=== PATIENT | male | born 1985 | race Caucasian/White ===

== ENCOUNTER 2019-01-22 15:13 | Emergency (ER) | payer MEDICARE, SELFPAY ==
[2019-01-22 15:14] VITALS: BP 117/78; PULSE 99; RESP 18; TEMP 36.7; O2SAT 96; BMI 35.5
--- NOTE | 2019-01-22 15:33 | ED.VISSUMM ---
- ER Visit Summary Date of Service: 01/22/19 Chief Complaint: Fatigue and weakness History of Present Illness: The patient is a 33 M who presents with fatigue and weakness that began today. Patient states he was at the [facility] urgent care waiting to be seen for his hand when he felt lightheaded and felt like he was going to pass out. Patient states he has only urinated once in the last 15 hours. Patient denies any dysuria or hematuria. Patient is concerned over possible kidney infection. Patient also thinks he may be dehydrated. Patient denies any fevers or chills. Patient denies any nausea or vomiting. Patient does admit to some mild intermittent back pain. Patient denies any headaches. Patient denies any chest pain or shortness of breath. Physical Examination: Vital signs are stable. Patient is afebrile. Patient is in no acute distress. Oral mucosa is pink and moist. Neck is supple. Trachea is midline. There is no JVD noted. Heart was regular rate and rhythm. Lungs are clear and equal bilateral. Abdomen is soft. Bowel sounds are normal. There is no tenderness. There is no guarding noted. Skin is warm dry. Cranial nerves II through XII are intact. There are no focal motor or sensory deficits noted. The remaining physical exam is within normal limits. Test Results: CBC was normal. Basic metabolic profile shows slightly elevated creatinine of 1.36 but the GFR was still normal. Urinalysis was normal. Emergency Department Course and Treatment: Patient was given IV fluids. Patient was feeling better on reevaluation. Patient was instructed to drink plenty of fluids. Patient was instructed to follow-up with his primary care physician in 5 to 7 days. Patient understood and was agreeable with the plan. All questions were answered. Disposition: Discharge home Impression: Mild dehydration This note was generated with [employer] dictation software. It may contain incorrect words, spelling, and punctuation that were not noted in review of the chart prior to signing ED Disposition - Plan for ED Patient: Disposition: Home or Assisted Living Diagnosis: Mild dehydration Instructions: DEHYDRATION (6y-Adult) Referrals: Mark High MD [NON-STAFF] - 5-7 Days
[2019-01-22] MEDS: 0.9% Normal Saline 1,000 ML 1000 ML IV (15:53)
[2019-01-22 16:13] LABS: Absolute Lymphocyte Count 2.29 X10^3/ul (0.83-4.51); Absolute Neutrophil Count 4.7 X10^3/uL (2.0-7.7); Basophil# 0.02 X10^3/uL; Basophil% 0.3 % (0-1); Eosinophil# 0.09 X10^3/uL; Eosinophils% 1.2 % (0-5); Hematocrit 45.1 % (40-54); Hemoglobin 14.8 g/dl (13.0-16.5); Lymphocyte # 2.29 X10^3/ul (4.0); Lymphocyte % 30.1 % (19-41); Mean Corp Hgb Conc 32.8 g/gl (32-36); Mean Corpuscular Hgb 28.5 pg (27.0-32.0); Mean Corpuscular Volume 86.9 fL (80-94); Mean Platelet Vol. 11.2 fl (6.2-12.0); Monocyte# 0.44 X10^3/uL; Monocyte% 5.8 % (0-10); Neutrophil # 4.73 X10^3/uL (2.7-7.7); Neutrophil % 62.2 % (47-70); Platelet Count 155 K/mm3 (150-450); RBC Distribution Width CV 14.2 % (11.6-14.6); RBC Distribution Width SD 45.2 fl (35.1-43.9); Red Blood Count 5.19 M/mm3 (4.6-6.2); White Blood Count 7.6 K/mm3 (4.4-11.0)
[2019-01-22 16:15] LABS: POSITIVE COUNT NO; POSITIVE DIFFERENTIAL NO; POSITIVE MORPHOLOGY NO
[2019-01-22 16:16] LABS: Bacteria 0 SEEN /hpf (None Seen); Mucous, Urine 0 SEEN /hpf (<or=2+); Red Blood Cells-Urine 0 SEEN /hpf (0-5); Squamous Epithelial Cells - UA 0 SEEN /hpf (0-5); White Blood Cells 0 SEEN /hpf (0-5)
[2019-01-22 16:21] LABS: ALB/GLOB Ratio 1.4 RATIO (0.9-2.4); AST(SGOT) 21 U/L (15-37); Alanine Aminotransfer ALT/SGPT 33 U/L (16-61); Albumin, Serum 3.8 g/dL (3.2-5.0); Alkaline Phosphatase 94 U/L (45-117); Anion Gap 3 (5-15); BUN 9 mg/dL (7-18); BUN/Creat Ratio 6.6 RATIO (10-20); Calcium,Total 8.4 mg/dL (8.5-10.1); Chloride 112 mmol/L (98-107); Creatinine, Serum 1.36 mg/dL (0.70-1.30); EST Glomerular Filtration Rate 64 mL/min (>60); Est Glom Filt Rate - Afr Amer 77 mL/min (>60); Estimated Creatinine Clearance 79.77 ml/min; Globulin 2.8 g/dL (2.2-4.2); Glucose 82 mg/dL (74-106); Potassium 3.9 mmol/L (3.5-5.1); Protein, Total 6.6 g/dL (6.4-8.2); Sodium Level 141 mmol/L (136-145)
[2019-01-22 16:38] LABS: Color, Urine Yellow (Yellow); Glucose, Dipstick Normal (Normal); Ketone-Dipstick Negative (Negative); Leukocyte Esterase-Dipstick Negative /ul (Negative); Nitrite-Dipstick Negative (Negative); Occult Blood-Urine Negative /ul (Negative); Protein-Dipstick Negative (Negative); Specific Gravity, Urine 1.005 (1.002-1.030); Urine Bilirubin Dipstick Negative (Negative); Urine Clarity Clear (Clear); Urine Urobilinogen Normal (Normal)
[2019-01-22 17:38] VITALS: BP 122/78; PULSE 89; RESP 16; O2SAT 95
== END 2019-01-22 17:39 | disposition home or self-care (01) ==
PROVIDERS: Emergency Provider Emergency Medicine
DX: E86.0 Dehydration (principal)
CPT/HCPCS: 80053; 81001; 85025; 96360; 96361; 99283; J7030

== ENCOUNTER 2019-04-18 19:47 | Emergency (ER) | payer MEDICARE, SELFPAY ==
[2019-04-18 19:48] VITALS: BP 118/67; PULSE 64; RESP 16; TEMP 36.6; O2SAT 100
[2019-04-18 19:49] VITALS: BP 118/67; PULSE 64; RESP 16; TEMP 36.6; O2SAT 100; BMI 35.0
--- NOTE | 2019-04-18 21:27 | ED.DCSUM_ITS ---
History of Present Illness Chief Complaint: Mental Health Informant: Patient Onset: Today Narrative: Patient is a 33-year-old male with history of bipolar disorder as well as schizophrenia. He is presenting with worsening of auditory hallucinations. Patient states he is hearing what he describes as a loud murmur in his head. He states he feels more overwhelmed than normal. He notes that the headstone for his recently grandfather was put up this week which he thinks is bothering him. Patient denies any homicidal or suicidal ideations. He states he lives home alone. He states he has an appointment to see his psychiatrist [employer] tomorrow. Patient states that he has been in the ER he is starting to feel better. He is in the ER with his frontload driver currently. He denies any other complaints. He states he does feel safe at home. Patient states he does not want to speak to crisis. Patient states that he is on multiple psychiatric medications does not know the name of them. He notes he does take Klonopin at night. Past Medical History - Allergies and Home Meds Allergies/Adverse Reactions: Allergies ziprasidone [From Geodon] Allergy (Verified 01/22/19 15:16) Other STIFFNESS IN BODY Primary Care Physician: Slim Patterson [Primary Care Provider] - Past Medical History: - - Bipolar disorder, schizophrenia Lives: Alone Smoking Status: Never smoker Review of Systems All systems negative except as indicated Psych: Reports: Anxiety, - - Auditory hallucinations. Denies: Suicidal thoughts, Suicidal ideations Physical Exam Vital Signs/Narrative: Vital Signs Temp Pulse Resp BP Pulse Ox 04/18/19 19:49 97.9 F 64 16 118/67 100 04/18/19 19:48 97.9 F 64 16 118/67 100 Inital Vital Signs reviewed: Yes General: Well nourished, Well developed, No Acute Distress Head: Normocephalic, Atraumatic Eyes: Perrl, EOMI ENT: Moist mucous membranes, No rhinorrhea Neck: Supple, Nontender Cardiovascular: Regular rate, Regular rhythm, No murmurs Respiratory: No distress, CTA bilaterally, Chest nontender Abdomen: Soft, Nontender, Nondistended, Normal bowel sounds Back: Nontender, Normal Inspection Extremities: Nontender, No edema Skin: Normal color, No rash Neurological: Alert, Oriented x3, Cranial nerves II-XII grossly intact, Normal Strength, Normal Sensation Psychological: Normal affect, - - Is slightly anxious but behaving appropriately. He seems to have good insight. He denies any homicidal or suicidal ideations. He expresses hope for the future and admits that he was just feeling overwhelmed today. Diagnostic/Tx/Re-eval - Medical Decision Making She is evaluated for worsening auditory hallucinations. He appears nontoxic and in no acute distress. Patient is behaving appropriately. He states he has had these hallucinations for the past 12 years but they just were just worse today. Patient states he is actually feeling improved since he has been in the ER. He states he would like to go home as he does not think he needs crisis evaluation or any inpatient evaluation. Patient is acting appropriately and I feel like this is an acceptable plan. Patient symptoms seem to be near his baseline I do not think a metabolic work-up is indicated. He also has an appointment to see his psychiatrist tomorrow where he can have any medication adjustments made as needed. Patient is given his p.m. dose of clonazepam. An oarrs report shows that he receives 1 mg to take nightly. That is what is ordered for him. Patient does have a ride home. Patient is counseled on signs and symptoms requiring return to the emergency room. Patient verbalizes agreement and understand this plan. Patient discharged home in stable and improved condition. ED Disposition - Plan for ED Patient: Disposition: Home or Assisted Living Diagnosis: Continuous auditory hallucinations Referrals: Slim Patterson [Primary Care Provider] - Additional Instructions: Please make sure you follow-up with your psychiatrist tomorrow. Please return to the emergency room if you feel that you need further help or have worsening symptoms.
[2019-04-18] MEDS: clonazePAM 1 MG Tablet PO (21:33)
[2019-04-18 21:37] VITALS: BP 128/78; PULSE 79; RESP 16; O2SAT 97
== END 2019-04-18 21:39 | disposition home or self-care (01) ==
PROVIDERS: Emergency Provider Emergency Medicine; Family Provider Family Medicine; PCP Family Medicine
DX: F20.9 Schizophrenia, unspecified (principal); F31.9 Bipolar disorder, unspecified
CPT/HCPCS: 99284

== ENCOUNTER 2019-08-07 12:02 | Emergency (ER) | payer MEDICARE, SELFPAY ==
[2019-08-07 12:03] VITALS: BP 111/68; PULSE 84; RESP 16; TEMP 36.8; O2SAT 97; BMI 35.2
--- NOTE | 2019-08-07 13:20 | ED.VIS.GEN ---
History of Present Illness Chief Complaint: Nausea/Vomiting/Diarrhea Detail of Chief Complaint: Onset of diarrhea 4 weeks ago and vomiting past week Informant: Patient, Family Onset: Weeks - Weeks Context: Sudden Onset Timing: Intermittent Quality: Nausea and vomiting and diarrhea Location: Pain periumbilical Maximum Severity: Moderate Worsened by: Nausea, vomiting diarrhea Relieved by: Nothing Associated Symptoms: None Narrative: Patient 34-year-old male with history of bipolar affect disorder schizoaffective sorter presents with abdominal pain that he localized in the periumbilical area. He reports 10 loose watery stools per day for the past month. Vomiting started the past week. He has not noted any blood or mucus in stool. There is no family history of inflammatory bowel disorder nor does he have history. Patient does complain of thirst, dry mouth and questionable lightheadedness. He denies fever chills. He denies myalgias arthralgias. He denies rash. Denies ill contacts. Prior similar symptoms: No Recent Illness/Hospitalization: No - Past Medical History (1) Bipolar affective disorder Status: Acute (2) Schizoaffective disorder Status: Acute Past Medical History - Allergies and Home Meds Allergies/Adverse Reactions: Allergies ziprasidone [From Geodon] Allergy (Verified 08/07/19 12:04) Other STIFFNESS IN BODY milk Adverse Reaction (Verified 08/07/19 12:05) Upset Stomach Primary Care Physician: Slim Patterson [Primary Care Provider] - Prior records reviewed: Yes Surgical History: no surgical history Lives: With Family Smoking Status: Never smoker Alcohol: None Drugs: None Review of Systems General: Denies: Chills, Fever, Sweats Eyes: Denies: Visual changes - bilaterally, Diplopia ENT: Denies: Rhinorrhea, Sore throat Cardiovascular: Denies: Chest pain, Palpitations Respiratory: Denies: Dyspnea, Cough, Dyspnea on exertion Gastrointestinal: Reports: Abdominal pain, Nausea, Vomiting, Diarrhea. Denies: Melena, Hematochezia Genitourinary: Denies: Dysuria, Hematuria, Frequency Musculoskeletal: Denies: Myalgias, Arthralgias, Neck pain, Back pain, Extremity Pain Skin: Denies: Rash, Wounds Neurological: Denies: Headache, Weakness, Numbness Hematologic: Denies: Easy bruising, Easy bleeding Physical Exam Vital Signs/Narrative: Vital Signs Temp Pulse Resp BP Pulse Ox 08/07/19 12:03 98.2 F 84 16 111/68 97 Inital Vital Signs reviewed: Yes General: Well nourished, Well developed, No Acute Distress Head: Normocephalic, Atraumatic Eyes: Perrl, EOMI ENT: Moist mucous membranes, No rhinorrhea Neck: Supple, Nontender, No lymphadenopathy, No JVD Cardiovascular: Regular rate, Regular rhythm, No murmurs, Normal S1, Normal S2 Respiratory: No distress, CTA bilaterally, Chest nontender Abdomen: Soft, Nontender, Nondistended, Normal bowel sounds, No masses Back: Nontender, Normal Inspection. Negative for: CVA tenderness Extremities: Nontender, No edema Skin: Normal color, No rash Neurological: Alert, Oriented x3, Cranial nerves II-XII grossly intact, Normal Strength, Normal Sensation Psychological: Normal affect, Normal Mood Diagnostic/Tx/Re-eval Laboratory Results 08/07/19 08/07/19 13:34 13:34 WBC 7.8 RBC 5.36 Hgb 15.8 Hct 47.6 MCV 88.8 MCH 29.5 MCHC 33.2 RDW Std Deviation 43.7 RDW Coeff of Konstantin 13.4 Plt Count 162 MPV 11.4 Immature Gran % (Auto) 0.600 Neut % (Auto) 74.6 H Lymph % (Auto) 17.6 L [place] % (Auto) 6.0 Eos % (Auto) 0.8 Baso % (Auto) 0.4 Absolute Neuts (auto) 5.8 Absolute Lymphs (auto) 1.37 Nucleated RBC % 0 Sodium 143 Potassium 4.4 Chloride 113 H Carbon Dioxide 27.0 Anion Gap 3 L BUN 8 Creatinine 1.12 Estim Creat Clear Calc 95.96 Est GFR (MDRD) Af Amer 97 Est GFR (MDRD) Non-Af 80 BUN/Creatinine Ratio 7.1 L Glucose 90 Calcium 9.2 Total Bilirubin 0.30 AST 20 ALT 42 Alkaline Phosphatase 92 Total Protein 7.3 Albumin 4.1 Globulin 3.2 Albumin/Globulin Ratio 1.3 Stool was not sent for tests ordered because it was formed. Plan is to discharge to home and have him follow-up with his primary care physician. - Medical Decision Making History of diarrhea for months will obtain stool cultures. I was informed by nurse that his stool is formed. ED Disposition - Plan for ED Patient: Disposition: Home or Assisted Living Diagnosis: Periumbilical abdominal pain, Reported nausea vomiting, Diarrhea resolved Instructions: ABDOMINAL PAIN, Unkown Cause, (Male) Referrals: Slim Patterson [Primary Care Provider] - As Needed
[2019-08-07] MEDS: Ondansetron 4 MG/2 ML Vial IV (13:33)
[2019-08-07] MEDS: 0.9% Normal Saline 1,000 ML 1000 ML IV (13:33)
[2019-08-07 13:43] LABS: Absolute Lymphocyte Count 1.37 X10^3/uL (0.83-4.51); Absolute Neutrophil Count 5.8 X10^3/uL (2.0-7.7); Basophil# 0.03 X10^3/uL; Basophil% 0.4 % (0-1); Eosinophil# 0.06 X10^3/uL; Eosinophils% 0.8 % (0-5); Hematocrit 47.6 % (40-54); Hemoglobin 15.8 g/dL (13.0-16.5); Lymphocyte # 1.37 X10^3/ul (4.0); Lymphocyte % 17.6 % (19-41); Mean Corp Hgb Conc 33.2 g/dL (32-36); Mean Corpuscular Hgb 29.5 pg (27.0-32.0); Mean Corpuscular Volume 88.8 fL (80-94); Mean Platelet Vol. 11.4 fl (6.2-12.0); Monocyte# 0.47 X10^3/uL; NRBC Flagged by Analyzer 0 % (0-5); Neutrophil # 5.79 X10^3/uL (2.7-7.7); Neutrophil % 74.6 % (47-70); Platelet Count 162 K/mm3 (150-450); RBC Distribution Width CV 13.4 % (11.6-14.6); RBC Distribution Width SD 43.7 fl (35.1-43.9); Red Blood Count 5.36 M/mm3 (4.6-6.2); White Blood Count 7.8 K/mm3 (4.4-11.0)
[2019-08-07 14:00] LABS: ALB/GLOB Ratio 1.3 RATIO (0.9-2.4); AST(SGOT) 20 U/L (15-37); Alanine Aminotransfer ALT/SGPT 42 U/L (16-61); Albumin, Serum 4.1 g/dL (3.2-5.0); Alkaline Phosphatase 92 U/L (45-117); Anion Gap 3 (5-15); BUN 8 mg/dL (7-18); BUN/Creat Ratio 7.1 RATIO (10-20); Calcium,Total 9.2 mg/dL (8.5-10.1); Chloride 113 mmol/L (98-107); Creatinine, Serum 1.12 mg/dL (0.70-1.30); EST Glomerular Filtration Rate 80 mL/min (>60); Est Glom Filt Rate - Afr Amer 97 mL/min (>60); Estimated Creatinine Clearance 95.96 ml/min; Globulin 3.2 g/dL (2.2-4.2); Glucose 90 mg/dL (74-106); Potassium 4.4 mmol/L (3.5-5.1); Protein, Total 7.3 g/dL (6.4-8.2); Sodium Level 143 mmol/L (136-145)
[2019-08-07 15:05] VITALS: BP 115/66; PULSE 71; RESP 16; O2SAT 99
== END 2019-08-07 15:06 | disposition home or self-care (01) ==
PROVIDERS: Emergency Provider Emergency Medicine; Family Provider Family Medicine; PCP Family Medicine
DX: R10.33 Periumbilical pain (principal); R11.2 Nausea with vomiting, unspecified; R19.7 Diarrhea, unspecified
CPT/HCPCS: 80053; 85025; 96361; 96374; 99283; J7030; J2405

== ENCOUNTER 2019-09-16 11:40 | Emergency (ER) | payer MEDICARE, MEDICAID, SELFPAY ==
[2019-09-16 11:41] VITALS: BP 124/67; PULSE 81; RESP 15; TEMP 36.6; O2SAT 100; BMI 35.5
--- NOTE | 2019-09-16 12:06 | RAD_ITS ---
STUDY: X-RAY CHEST REASON FOR EXAM: Male, 34 years old. CHEST AND JAW PRESSURE TECHNIQUE: Frontal view COMPARISON: August 26, 2010 FINDINGS: The lungs are clear and expanded. There is no demonstrated pleural abnormality. Normal size heart. Normal mediastinum and amrit. Normal visualized pulmonary arteries. Normal visualized aortic arch and descending thoracic aorta. Normal visualized thoracic spine. Normal visualized ribs, clavicles, and shoulders. There is no demonstrated abnormality of the visualized soft tissue structures of the upper abdomen. RAD/Chest 1 View (Portable) IMPRESSION: Normal x-ray examination of the chest. Electronically Signed: Fernie Wells DO at 12:40 EST Tel [phone], Service support ,
--- NOTE | 2019-09-16 12:06 | EKG12_ITS ---
Test Reason : CP Blood Pressure : / mmHG Vent. Rate : 080 BPM Atrial Rate : 080 BPM P-R Int : 156 ms QRS Dur : 082 ms QT Int : 362 ms P-R-T Axes : 054 -15 047 degrees QTc Int : 417 ms Normal sinus rhythm with sinus arrhythmia Normal ECG Confirmed by ASHLEY JACKSON ([id number]), editor farm journal AMOR VYAS ([id number]) on 09/19/2019 2:54:52 PM Referred By: CARRI/RONAK Confirmed By:ASHLEY JACKSON
[2019-09-16 12:28] LABS: Absolute Lymphocyte Count 1.28 X10^3/uL (0.83-4.51); Absolute Neutrophil Count 4.6 X10^3/uL (2.0-7.7); Basophil# 0.03 X10^3/uL; Basophil% 0.5 % (0-1); Eosinophil# 0.03 X10^3/uL; Eosinophils% 0.5 % (0-5); Hematocrit 46.3 % (40-54); Hemoglobin 15.5 g/dL (13.0-16.5); Lymphocyte # 1.28 X10^3/ul (4.0); Lymphocyte % 19.9 % (19-41); Mean Corp Hgb Conc 33.5 g/dL (32-36); Mean Corpuscular Hgb 29.2 pg (27.0-32.0); Mean Corpuscular Volume 87.4 fL (80-94); Mean Platelet Vol. 11.1 fl (6.2-12.0); Monocyte# 0.43 X10^3/uL; Monocyte% 6.7 % (0-10); NRBC Flagged by Analyzer 0 % (0-5); Neutrophil # 4.62 X10^3/uL (2.7-7.7); Neutrophil % 71.9 % (47-70); Platelet Count 159 K/mm3 (150-450); RBC Distribution Width CV 13.5 % (11.6-14.6); RBC Distribution Width SD 43.4 fl (35.1-43.9); White Blood Count 6.4 K/mm3 (4.4-11.0)
[2019-09-16] MEDS: Aspirin 81 MG TAB.CHEW 324 MG PO (12:36)
[2019-09-16 12:37] VITALS: BP 100/85; PULSE 98; RESP 17; O2SAT 97; O2SAT 99
[2019-09-16 12:46] LABS: Anion Gap 3 (5-15); BUN 12 mg/dL (7-18); BUN/Creat Ratio 11.4 RATIO (10-20); Calcium,Total 9.1 mg/dL (8.5-10.1); Chloride 110 mmol/L (98-107); Creatinine, Serum 1.05 mg/dL (0.70-1.30); EST Glomerular Filtration Rate 86 mL/min (>60); Est Glom Filt Rate - Afr Amer 104 mL/min (>60); Estimated Creatinine Clearance 102.35 ml/min; Glucose 88 mg/dL (74-106); Potassium 4.8 mmol/L (3.5-5.1); Sodium Level 140 mmol/L (136-145)
--- NOTE | 2019-09-16 12:53 | ED.VISSUMM ---
- ER Visit Summary Date of Service: 09/16/19 Chief Complaint: [Chest pain] History of Present Illness: The patient is a 34 M [presents to the emergency department with chest discomfort that started around 11:30 AM. Patient states that he was in [place] when the pain started. He described a sharp discomfort in the epigastric region that kind of radiated up into his chest and he also had some jaw pain associated with it. He had never had discomfort like that before. Patient denied any radiation of the pain into the arms. Patient denies recent travel or surgery. He does have history of panic attacks and states that he has had similar symptoms with panic attacks but did not feel like he was panicked today. Patient denies recent illness.] Patient symptoms currently resolved. Physical Examination: [HEENT-PERRLA, EOMI. Cranial nerves II through XII grossly intact. TMs clear. Mucous membranes moist. No adenopathy. Cardiovascular-regular rate and rhythm without murmur or ectopy Lungs-clear to auscultation, chest wall stable without crepitus or subcu emphysema Abdomen-normoactive bowel sounds, soft, nontender, no rebound or rigidity, no peritoneal signs. Extremities-intact ?4, normal range of motion, normal pulses, atraumatic] Test Results: [EKG obtained arrival shows sinus rhythm with a ventricular rate of 80 bpm with no acute ST segment changes. CBC with differential was normal. Chemistries were normal. Troponin is less than 0.15. Chest x-ray showed nothing acute.] Emergency Department Course and Treatment: [Received aspirin on arrival. Patient was placed on rn cardiac.] Patient's MARKOS risk score is a 0. Patient's heart score is a 0. Patient does not have PE risk factors and is PERC negative. Treatment Plan: [Follow-up with primary care physician in 5 to 7 days.] Disposition: [Discharged home in stable condition] Impression: [Chest pain-etiology uncertain] This note was generated with [employer] dictation software. It may contain incorrect words, spelling, and punctuation that were not noted in review of the chart prior to signing ED Disposition - Plan for ED Patient: Referrals: Slim Patterson [Primary Care Provider] -
--- NOTE | 2019-09-16 12:58 | ED.DEP ---
ED Disposition - Plan for ED Patient: Instructions: CHEST PAIN, Uncertain Cause Referrals: Slim Patterson [Primary Care Provider] - 5-7 Days
[2019-09-16 13:04] VITALS: BP 116/74; PULSE 67; RESP 14; O2SAT 100
== END 2019-09-16 13:09 | disposition home or self-care (01) ==
PROVIDERS: Emergency Provider Emergency Medicine; PCP Family Medicine
DX: R07.9 Chest pain, unspecified (principal)
CPT/HCPCS: 71045; 80048; 84484; 85025; 93005; 99285; A4216

== ENCOUNTER 2019-10-10 19:02 | Emergency (ER) | payer MEDICARE, MEDICAID, SELFPAY ==
[2019-10-10 19:03] VITALS: BP 124/82; PULSE 90; RESP 18; TEMP 36.7; O2SAT 98; BMI 34.7
--- NOTE | 2019-10-10 19:19 | ED.DCSUM_ITS ---
- ER Visit Summary Date of Service: 10/10/19 Chief Complaint: I am tired History of Present Illness: The patient is a 34 M history of bipolar with schizophrenic tendencies. Patient states she has been tired for the last 21 years since she was 13 years old. He has had no one to do anything for it. He states the doctors are blowing him off. He says he also has a mild sore throat. He denies vomiting. He denies any weight change. He denies any melena. Currently no fever. Of note the patient was seen about 3 to 4 weeks ago in emergency department had negative labs at that time including a normal CBC, chemistry, chest x-ray and EKG. Physical Examination: Young male no acute distress vital signs stable afebrile. Pulse ox 98% on room air no signs of hypoxia. HEENT exam normal. Posterior pharynx no erythema or exudate. Moist mucous membranes. No trouble swallowing or breathing. Neck nontender no lymphadenopathy. Lungs clear to auscultation bilaterally. Heart regular rhythm no murmur. Abdomen soft and nontender. Normal bowel sounds. No peritoneal signs. Extremities moves all 4. Calves are nontender without edema or cords. Neurologically is awake and alert with no focal motor deficits Test Results: Reviewed the patient's blood work from 3 to 4 weeks ago. It was unremarkable. Emergency Department Course and Treatment: Patient has a normal exam. I do not feel he needs any further testing. He will follow-up with his primary care physician. Treatment Plan: Outpatient follow-up. Disposition: Discharge Impression: Fatigue uncertain etiology History of bipolar disorder This note was generated with [employer] dictation software. It may contain incorrect words, spelling, and punctuation that were not noted in review of the chart prior to signing ED Disposition - Plan for ED Patient: Referrals: Slim Patterson [Primary Care Provider] -
--- NOTE | 2019-10-10 19:21 | ED.DEP ---
ED Disposition - Plan for ED Patient: Disposition: Home or Assisted Living Instructions: WEAKNESS, Unk Cause Referrals: Slim Patterson [Primary Care Provider] - 1 Week Additional Instructions: Follow-up with your doctor.
== END 2019-10-10 19:32 | disposition home or self-care (01) ==
LOC: ED 19:31
PROVIDERS: Emergency Provider Emergency Medicine; PCP Family Medicine
DX: R53.83 Other fatigue (principal); F31.9 Bipolar disorder, unspecified; Z79.899 Other long term (current) drug therapy
CPT/HCPCS: 99282

== ENCOUNTER 2019-12-26 19:30 | Emergency (ER) | payer MEDICARE, MEDICAID, SELFPAY ==
[2019-12-26 19:32] VITALS: BP 133/91; PULSE 111; RESP 15; TEMP 36.9; O2SAT 95; BMI 36.3
--- NOTE | 2019-12-26 21:13 | ED.DCSUM_ITS ---
History of Present Illness Chief Complaint: Rash Informant: Patient Onset: Weeks - 2, at least Context: Gradual Onset Timing: Continuous Quality of Pain: - - itching, sore at times Location: left forearm/AC fossa Current Severity: Mild Maximum Severity: Moderate Worsened by: nothing Relieved by: nothing; tried OTC hydrocortisone cream for a couple days w/o change Associated Symptoms: Negative for: Parasthesia, Weakness, Loss of Funtion Narrative: Patient states he does not know details in the timing, but states this has been on his left arm for a couple of weeks. He states at some point a couple weeks ago he was carrying some brush, some branches in his arms. He did not break out on the right arm, but he broke out on the left. He states he is mentally disabled, and I cannot remember things very well and states that he does not k now if the rash started before he was carrying that, he really is not sure. He does not recall having an injury or a branch open up the area there but he states that could have happened to. He states he knows he was not carrying any rosebush thorns. He also does not think there was poison asa there. - Past Medical History (1) Bipolar affective disorder Status: Chronic (2) Schizoaffective disorder Status: Chronic Past Medical History - Allergies and Home Meds Allergies/Adverse Reactions: Allergies ziprasidone [From Geodon] Allergy (Verified 12/26/19 19:31) Other STIFFNESS IN BODY milk Adverse Reaction (Verified 12/26/19 19:31) Upset Stomach Primary Care Physician: Slim Patterson MD [Primary Care Provider] - Surgical History: no surgical history Smoking Status: Never smoker Review of Systems General: Denies: Chills, Fever, Sweats Eyes: Denies: Visual changes - bilaterally, Diplopia ENT: Denies: Rhinorrhea, Sore throat Cardiovascular: Denies: Chest pain, Palpitations Respiratory: Denies: Dyspnea, Cough, Dyspnea on exertion Gastrointestinal: Denies: Abdominal pain, Nausea, Vomiting, Diarrhea, Melena, Hematochezia Genitourinary: Denies: Dysuria, Hematuria, Frequency Musculoskeletal: Denies: Back pain, Extremity Pain Skin: Reports: Rash. Denies: Wounds Neurological: Denies: Headache, Weakness, Numbness Physical Exam Vital Signs/Narrative: Vital Signs Temp Pulse Resp BP Pulse Ox 12/26/19 19:32 98.4 F 111 H 15 133/91 H 95 General: Well nourished, Well developed, - - Well-appearing, no distress Head: Normocephalic, Atraumatic Extremeties: Full range of motion throughout all 4 extremities, no palpable cords or distal edema especially left upper extremity Skin: Normal color, No Trauma, Rash - Raised, nontender, blanching erythematous rash surrounding the left AC fossa. It is almost consistent with urticaria, that appears to be circling around an erythematous area that is directly over the AC fossa. There are 2 or 3 very small areas in the center that almost appear like unroofed blisters. There are no other bullae or blisters present. No petechiae. Full range of motion, none of the areas are tender, no discharge expressible from anywhere. No lymphangitis. Neurological: Alert, Oriented x3, Cranial nerves II-XII grossly intact, Normal Strength, Normal Sensation, Normal Gait Psychological: Normal affect, Normal Mood Diagnostic/Tx/Re-eval - Medical Decision Making I suspect this is a contact dermatitis. Will prescribe him medium potency triamcinolone to use twice daily, if it does not resolve he can follow-up with dermatology to where he was referred. I think it is less likely to be fungal, although I do not have the ability to biopsy that here. ED Disposition - Plan for ED Patient: Disposition: Home or Assisted Living Diagnosis: Allergic contact dermatitis due to plant Instructions: ED General Allergic Reactions Prescriptions: Triamcinolone 0.1% Cream [Kenalog] 1 applic TOPICAL BID 10 Days #1 tube Prescription Printed Referrals: Slim Patterson MD [Primary Care Provider] - Triston Allison MD [STAFF PHYSICIAN] - 1 Week if not improving
== END 2019-12-26 21:37 | disposition home or self-care (01) ==
LOC: ED 21:37
PROVIDERS: Emergency Provider Emergency Medicine; PCP Family Medicine
DX: L23.7 Allergic contact dermatitis due to plants, except food (principal); F31.9 Bipolar disorder, unspecified; F25.9 Schizoaffective disorder, unspecified; Z79.899 Other long term (current) drug therapy
CPT/HCPCS: 99282

== ENCOUNTER 2020-09-11 10:42 | Emergency (ER) | payer MEDICARE, MEDICAID, SELFPAY ==
[2020-09-11 10:43] VITALS: BP 124/76; PULSE 91; RESP 16; TEMP 35.5; O2SAT 98; BMI 34.0
--- NOTE | 2020-09-11 11:00 | RAD_ITS ---
STUDY: X-RAY - RIGHT SHOULDER REASON FOR EXAM: Male, 35 years old. SHOULDER PAIN FOR MONTHS TECHNIQUE: 4 view(s) of the shoulder. COMPARISON: None. FINDINGS: Normal glenohumeral articulation. Normal acromioclavicular joint. Normal acromion. Normal humeral head and visualized proximal humerus. The soft tissue structures are unremarkable. Normal visualized pulmonary apex. RAD/Shoulder min 2 Views IMPRESSION: Normal x-ray examination of the shoulder. Electronically Signed: Pérez Peñaloza MD at 11:20 EST , Service support ,
--- NOTE | 2020-09-11 11:01 | ED.VISSUMM ---
- ER Visit Summary Date of Service: 09/11/20 Chief Complaint: Right shoulder pain History of Present Illness: The patient is a 35 M who presents with right shoulder pain that has been constant for the past 2 months. Patient states he woke up with it. Patient denies any trauma or injury. Patient states the pain is sharp. Patient states nothing makes it worse and nothing makes it better. Patient denies any paresthesias or weakness. Patient states pain is worse over the posterior lateral aspect of his right shoulder. Physical Examination: Vital signs are stable. Patient is afebrile. Patient is in no acute distress. Musculoskeletal exam reveals tenderness over the posterior lateral aspect of the right shoulder. There is no deformity. There is no edema or ecchymosis. Range of motion was limited in abduction and slightly limited in flexion secondary to pain. There is pain with resistive abduction and resisted flexion. Strength is 5/5 in the right upper extremity. There are no sensory deficits. Radial pulses are equal bilaterally. Test Results: X-rays of the right shoulder were obtained. There are 4 views. On my interpretation, there is no acute fracture or dislocation. There are no degenerative changes noted. Radiologist also interpreted the x-rays and agrees. Emergency Department Course and Treatment: Patient was advised of his findings. Patient was advised that this may be a rotator cuff tear or strain. Patient states he has Voltaren at home that he takes for arthritis in his knees. Patient was instructed to use this as needed. Patient was instructed to follow-up with his primary care physician in 5 to 7 days. Patient understood and was agreeable with the plan. All questions were answered. Disposition: Discharge home Impression: 1. Right shoulder strain This note was generated with [employer] dictation software. It may contain incorrect words, spelling, and punctuation that were not noted in review of the chart prior to signing ED Disposition - Plan for ED Patient: Disposition: Home or Assisted Living Diagnosis: Right shoulder strain Instructions: ED Shoulder Pain, Uncertain Cause Referrals: Slim Patterson MD [Primary Care Provider] - 5-7 Days
[2020-09-11 11:33] VITALS: BP 124/59; PULSE 76; RESP 15; O2SAT 97
== END 2020-09-11 11:33 | disposition home or self-care (01) ==
PROVIDERS: Emergency Provider Emergency Medicine; PCP Family Medicine
DX: S46.911A Strain of unspecified muscle, fascia and tendon at shoulder and upper arm level, right arm, initial encounter (principal); F31.9 Bipolar disorder, unspecified; F20.9 Schizophrenia, unspecified; Z79.899 Other long term (current) drug therapy; X58.XXXA Exposure to other specified factors, initial encounter; Y93.84 Activity, sleeping; Y92.003 Bedroom of unspecified non-institutional (private) residence as the place of occurrence of the external cause; Y99.8 Other external cause status
CPT/HCPCS: 73030; 99282

== ENCOUNTER 2021-07-23 06:21 | Emergency (ER) | payer MEDICARE, MEDICAID, SELFPAY ==
[2021-07-23 06:21] VITALS: BP 133/81; PULSE 102; RESP 16; TEMP 36.1; O2SAT 94; BMI 36.6
--- NOTE | 2021-07-23 06:42 | RAD_ITS ---
CLINICAL INDICATION: dyspnea EXAMINATION/TECHNIQUE: X-RAY - XR Chest 1 View COMPARISON: 09/16/2019 . FINDINGS: Poor inspiratory effort is seen. Peribronchial cuffing bilateral hilar prominence is seen, mild prominence of the bronchovascular interstitial lung markings is visualized bilaterally, no evidence of focal lung infiltrate or consolidation. Evaluation of the right costophrenic angle is seen, the costophrenic angles are clear bilaterally, no evidence of pleural effusion is seen. No evidence of pneumothorax or parenchymal lung mass. The cardiovascular silhouette is unremarkable. The bones are unremarkable for the patient''s age. RAD/Chest 1 View (Portable) IMPRESSION: Peribronchial cuffing and bilateral hilar prominence, would recommend clinical correlation for bronchitis or airway disease. Electronically Signed: Monroe Qiu MD at 7:55 EST Tel , Service support ,
[2021-07-23] MEDS: 0.9% Normal Saline 1,000 ML 999 ML IV (06:58)
[2021-07-23] MEDS: dexAMETHasone 10 MG/ML Vial IV (06:59)
[2021-07-23 07:00] LABS: Absolute Lymphocyte Count 1.02 X10^3/uL (0.83-4.51); Absolute Neutrophil Count 5.2 X10^3/uL (2.0-7.7); Basophil# 0.02 X10^3/uL; Basophil% 0.3 % (0-1); Eosinophil# 0.04 X10^3/uL; Eosinophils% 0.6 % (0-5); Hematocrit 47.4 % (40-54); Hemoglobin 16.3 g/dL (13.0-16.5); Lymphocyte # 1.02 X10^3/ul (0.83-4.51); Lymphocyte % 14.4 % (19-41); Mean Corp Hgb Conc 34.4 g/dL (32-36); Mean Corpuscular Hgb 29.1 pg (27.0-32.0); Mean Corpuscular Volume 84.5 fL (80-94); Monocyte# 0.79 X10^3/uL; Monocyte% 11.2 % (0-10); NRBC Flagged by Analyzer 0 % (0-5); Neutrophil # 5.18 X10^3/uL (2.7-7.7); Neutrophil % 73.2 % (47-70); Platelet Count 152 K/mm3 (150-450); RBC Distribution Width CV 12.8 % (11.6-14.6); RBC Distribution Width SD 39.4 fl (35.1-43.9); Red Blood Count 5.61 M/mm3 (4.6-6.2); White Blood Count 7.1 K/mm3 (4.4-11.0)
--- NOTE | 2021-07-23 07:05 | EDS_ITS ---
HPI History of Present Illness Chief Complaint: Shortness of Breath Narrative Narrative: Patient is a 36-year-old male who states that he was around his sister who recently tested positive for Covid. He states over the past 2 to 3 days he has had generalized fatigue with lightheadedness nasal congestion sore throat cough and shortness of breath. He states he tested for Covid on Tuesday and was negative. He reports that he feels like his symptoms have been slowly worsening and his shortness of breath increasing and secondary to this he comes in for evaluation. Patient denies any need for supplemental oxygen or history of lung disorder [facility] Medical History Bipolar 1 disorder Schizophrenia Home Medications aripiprazole 400 mg IM .COMPLEX 09/16/19 [History Last Taken 08/28/19] buspirone 15 mg PO DAILY 09/16/19 [History Last Taken 09/16/19] cariprazine 6 mg PO DAILY 09/16/19 [History Last Taken 09/16/19] clonazepam 2 mg PO BID 09/16/19 [History Last Taken 09/16/19] clonidine HCl 0.2 mg PO DAILY 09/16/19 [History Last Taken 09/16/19] levetiracetam 500 mg PO DAILY 09/16/19 [History Last Taken 09/16/19] omeprazole 40 mg PO DAILY 09/16/19 [History Last Taken 09/16/19] Allergy/AdvReac Type Severity Reaction Status Date / Time [facility] Allergy Other Verified 07/23/21 06:24 milk AdvReac Upset Verified 07/23/21 06:24 Stomach Social History Smoking Status: Never smoker [facility] ED Constitutional Constitutional ED: Reports chills, fever(s) and subjective ENT ENT ED: Reports rhinorrhea and sore throat Cardiovascular Cardiovascular: Denies chest pain Respiratory/Chest Respiratory/Chest: Reports cough and dyspnea Gastrointestinal Gastrointestinal: Reports nausea; Denies abdominal pain, diarrhea or vomiting Genitourinary Genitourinary ED: Denies dysuria Musculoskeletal Musculoskeletal: Reports myalgias Integumentary Denies rash Neurologic Neurologic: Reports headache(s) and weakness Hematologic/Lymphatic Hematologic/Lymphatic: Denies easy bleeding or easy bruising EXAM Physical Exam Const Vital Signs: 07/23/21 06:21 07/23/21 06:28 Temperature 96.9 F L Temperature Source Temporal Pulse Rate 102 H Respiratory Rate 16 Respiratory Effort Normal Non-Labored Respiratory Depth Normal Respiratory Pattern Normal Blood Pressure 133/81 H Blood Pressure Mean 98 Pulse Ox 94 Oxygen Delivery Method Room Air Positive well nourished and well developed General Appearance ED: well developed HEENT HEENT Narrative: There is cobblestoning the posterior pharynx consistent with sinus drainage but no airway edema or compromise Eyes PERRL and EOMs intact bilaterally Neck supple and no JVD Neck Narrative: Positive anterior cervical lymphadenopathy Chest Wall palpation of chest normal Resp normal respiratory effort Resp Narrative: Breath sounds are slight diminished throughout with faint expiratory wheezes in the bases but no signs of distress Cardio regular rhythm Rate: other Other Details: Slightly tachycardic rate with regular rhythm radial pulses are plus 2 out of 4 bilaterally they are equal and symmetric GI non-tender and non-distended GI Narrative: Bowel sounds are hyperactive but no voluntary guarding or rigidity no pulsatile mass Palpation: soft Extremity normal to inspection Extremity Narrative: No asymmetric edema no pitting edema negative Homans' sign bilaterally Neuro oriented x3 and CN's II-XII intact bilaterally Sensorium / Orientation: alert Motor Exam: strength 5/5 throughout Psych Psych Narrative: Patient has a flat/depressed affect Skin no rashes or lesions noted MDM MDM MDM Narrative Medical decision making narrative: Patient presented to the ER just mildly tachycardic but afebrile and satting in the mid 90s on room air. Clinically his constellation of symptoms are consistent with Covid. However as he reports that his symptoms have been worsening I elected to perform basic laboratory studies a Covid swab and chest x-ray. As long as patient continues to maintain his oxygen saturation with no changes to suggest hypoxia or respiratory distress he will be safe for discharge with symptomatic care Lab Data Labs: Laboratory Results - last 24 hr 07/23/21 06:57 WBC 7.1 RBC 5.61 Hgb 16.3 Hct 47.4 MCV 84.5 MCH 29.1 MCHC 34.4 RDW Std Deviation 39.4 RDW Coeff of Konstantin 12.8 Plt Count 152 MPV 11.0 Immature Gran % (Auto) 0.300 Neut % (Auto) 73.2 H Lymph % (Auto) 14.4 L Clayton % (Auto) 11.2 H Eos % (Auto) 0.6 Baso % (Auto) 0.3 Absolute Neuts (auto) 5.2 Absolute Lymphs (auto) 1.02 Nucleated RBC % 0 Discharge Plan Triage Chief Complaint: Shortness of Breath ED Provider: Dony Wilcox Dx/Rx/DC Orders Prescriptions: No Action omeprazole 40 MG capsule,delayed release(DR/EC) 40 mg PO DAILY RF: 0 clonidine HCl 0.2 MG tablet 0.2 mg PO DAILY RF: 0 clonazepam 2 MG tablet 2 mg PO BID RF: 0 buspirone 15 MG tablet 15 mg PO DAILY RF: 0 levetiracetam 500 MG tablet extended release 24 hr 500 mg PO DAILY RF: 0 aripiprazole 400 MG suspension,extended rel recon 400 mg IM .COMPLEX RF: 0 cariprazine 6 MG capsule 6 mg PO DAILY RF: 0 Primary Care Provider: Slim Patterson
[2021-07-23 07:18] LABS: Anion Gap 5 (5-15); BUN 14 mg/dL (7-18); BUN/Creat Ratio 13.3 RATIO (10-20); Calcium,Total 8.8 mg/dL (8.5-10.1); Chloride 107 mmol/L (98-107); Creatinine, Serum 1.05 mg/dL (0.70-1.30); EST Glomerular Filtration Rate 85 mL/min (>60); Est Glom Filt Rate - Afr Amer 103 mL/min (>60); Estimated Creatinine Clearance 100.42 ml/min; Glucose 93 mg/dL (74-106); Magnesium 2.2 mg/dL (1.6-2.6); Potassium 4.3 mmol/L (3.5-5.1); Sodium Level 137 mmol/L (136-145)
[2021-07-23 07:49] VITALS: BP 134/82; PULSE 73; RESP 15; O2SAT 96
== END 2021-07-23 07:51 | disposition home or self-care (01) ==
PROVIDERS: Emergency Medicine; Emergency Provider Emergency Medicine; PCP Family Medicine
DX: U07.1 COVID-19 (principal); Z79.899 Other long term (current) drug therapy
CPT/HCPCS: 71045; 80048; 83735; 85025; 87426; 96361; 96374; 99282; J7030

== ENCOUNTER 2022-10-09 21:43 | Emergency (ER) | payer MEDICARE, MEDICAID, SELFPAY ==
[2022-10-09 21:44] VITALS: BP 134/63; PULSE 109; RESP 18; TEMP 35.8; O2SAT 94; BMI 39.2
--- NOTE | 2022-10-09 21:56 | EX.ED.GENINJ ---
HPI History of Present Illness Chief Complaint: Fall Narrative Narrative: 37-year-old male presents with pain in his tailbone. He states that he fell a week ago on his buttocks. He states initially this did not hurt. After driving for an hour he realized it was starting to hurt. He states he has not tried anything really for pain this week because he was hoping the pain would just go away. He reports it is worse when he sits down on it. He is ambulatory. He notes that he has been otherwise healthy. He is making normal normal stool and urine. No blood in the stool. [facility] Medical History Bipolar 1 disorder Schizophrenia Home Medications aripiprazole 400 mg intramuscular suspension,extended release 400 mg IM .COMPLEX 09/16/19 [History Last Taken 08/28/19] buspirone 15 mg tablet 15 mg PO DAILY 09/16/19 [History Last Taken 09/16/19] cariprazine 6 mg capsule 6 mg PO DAILY 09/16/19 [History Last Taken 09/16/19] clonazepam 2 mg tablet 2 mg PO BID 09/16/19 [History Last Taken 09/16/19] clonidine HCl 0.2 mg tablet 0.2 mg PO DAILY 09/16/19 [History Last Taken 09/16/19] levetiracetam 500 mg tablet,extended release 24 hr 500 mg PO DAILY 09/16/19 [History Last Taken 09/16/19] omeprazole 40 mg capsule,delayed release 40 mg PO DAILY 09/16/19 [History Last Taken 09/16/19] dexamethasone 6 mg tablet (Decadron) 6 mg PO DAILY 10 days #10 tabs 07/23/21 [Rx Last Taken Unknown] ibuprofen 600 mg tablet 600 mg PO Q8H PRN PRN pain #30 TABLETS 10/09/22 [Rx Last Taken Unknown] Allergy/AdvReac Type Severity Reaction Status Date / Time ziprasidone [From [facility]] Allergy Other Verified 10/09/22 21:56 milk AdvReac Upset Verified 10/09/22 21:56 Stomach Social History Smoking Status: Never smoker ROS ROS ED Constitutional Constitutional ED: Denies chills, fever(s) or sweats Eyes Eyes: Denies blurry vision or change in vision ENT ENT ED: Denies ear pain or sore throat Cardiovascular Cardiovascular: Denies chest pain, palpitations or racing heartbeat Respiratory/Chest Respiratory/Chest: Denies cough, dyspnea or sputum Gastrointestinal Gastrointestinal: Denies abdominal pain, constipation, diarrhea, nausea or vomiting Genitourinary Genitourinary ED: Denies dysuria, hematuria or urinary frequency Musculoskeletal Musculoskeletal: Reports other Details: Pain in the tailbone ; Denies arthralgias, myalgias or neck pain Integumentary Denies abscess, Abrasions or rash Neurologic Neurologic: Denies headache(s), paresthesias or weakness Psychiatric Psychiatric: Denies anxiety, depression, suicidal ideation or suicidal thoughts Endocrine Endocrinology: Denies polydipsia or polyuria EXAM Physical Exam Const Vital Signs: 10/09/22 21:44 Temperature 96.5 F L Temperature Source Temporal Pulse Rate 109 H Respiratory Rate 18 Blood Pressure 134/63 H Blood Pressure Mean 86 Pulse Ox 94 Oxygen Delivery Method Room Air Positive well nourished General Appearance ED: NAD HEENT atraumatic Eyes PERRL and EOMs intact bilaterally Resp normal respiratory effort Cardio regular rhythm Rate: regular rate Back/Spine Back/Spine Narrative: Pain in the sacrum and coccyx. No obvious deformity. Neuro oriented x3 Sensorium / Orientation: alert Motor Exam: strength 5/5 throughout Psych mental status grossly normal Skin no rashes or lesions noted MDM MDM MDM Narrative Medical decision making narrative: Patient did fall on his tailbone. Differential here is tailbone contusion versus fracture. He is ambulatory. He has focal pain over this area. He was requesting some ibuprofen and was given to him. X-ray of the sacrum and coccyx shows no acute fracture my interpretation. Radiology services agrees. I recommended he get a pillow to help with his discomfort with sitting. He request a prescription for ibuprofen which was provided. Return precautions were discussed. Impression: 1. Tailbone contusion Radiography Diagnostic Testing: Clinical Impression(s) from Imaging Studies Sacrum and Coccyx X-Ray 10/09/22 22:10 IMPRESSION: Unremarkable sacro-coccygeal spine. Electronically Signed: Altaf Del Rio MD at 22:32 EDT , Discharge Plan Triage Chief Complaint: Fall ED Provider: Mario Doherty Dx/Rx/DC Orders Instructions: ED Coccyx or Sacrum Contusion Prescriptions: New ibuprofen 600 mg tablet 600 mg PO Q8H PRN PRN (Reason: pain) Qty: 30 0RF No Action omeprazole 40 MG capsule,delayed release(DR/EC) 40 mg PO DAILY clonidine HCl 0.2 MG tablet 0.2 mg PO DAILY clonazepam 2 MG tablet 2 mg PO BID buspirone 15 MG tablet 15 mg PO DAILY levetiracetam 500 MG tablet extended release 24 hr 500 mg PO DAILY aripiprazole 400 MG suspension,extended rel recon 400 mg IM .COMPLEX Rx Instructions: monthly cariprazine 6 MG capsule 6 mg PO DAILY dexamethasone [Decadron] 6 mg tablet 6 mg PO DAILY 10 Days Qty: 10 0RF Primary Care Provider: Slim Patterson Referrals: Slim Patterson MD [Primary Care Provider] - Disposition Disposition: Home, Self Care
[2022-10-09] MEDS: Ibuprofen 600 MG Tablet PO (22:03)
--- NOTE | 2022-10-09 22:10 | RAD_ITS ---
EXAM: XR SACRUM AND COCCYX, 2 OR MORE VIEWS CLINICAL INDICATION: pain TECHNIQUE: Frontal and lateral views of the sacrum and coccyx. This report was created using [employer] report generation technology. COMPARISON: None. FINDINGS: SACRUM/COCCYX: Unremarkable. No displaced fracture. No destructive or sclerotic lesions. Note that overlapping bowel shadows may however obscure fine detail in the frontal view. Sacroiliac joints are unremarkable. SOFT TISSUES: Unremarkable. No soft tissue swelling or gas. RAD/Sacrum-Coccyx min 2 Views IMPRESSION: Unremarkable sacro-coccygeal spine. Electronically Signed: Altaf Del Rio MD at 22:32 EDT ,
== END 2022-10-09 22:59 | disposition home or self-care (01) ==
PROVIDERS: Emergency Provider Student in an Organized Health Care Education/Training Program; PCP Family Medicine; Visit Provider Student in an Organized Health Care Education/Training Program
DX: S30.0XXA Contusion of lower back and pelvis, initial encounter (principal); W19.XXXA Unspecified fall, initial encounter
CPT/HCPCS: 72220; 99283

== ENCOUNTER 2024-03-05 06:04 | Emergency (ER) | payer MEDICARE, MEDICAID, SELFPAY ==
[2024-03-05 06:05] VITALS: BP 129/82; PULSE 92; RESP 16; TEMP 36.8; O2SAT 99; BMI 39.2
--- NOTE | 2024-03-05 06:05 | EX.ED.VIS.PS ---
HPI HPI - Psych History of Present Illness Chief Complaint: Mental Health [facility] Medical History Bipolar 1 disorder Schizophrenia Home Medications ?Medication ?Instructions ?Recorded ?Last Taken ?Type aripiprazole 400 mg intramuscular 400 mg IM .COMPLEX 09/16/19 08/28/19 History suspension,extended release buspirone 15 mg tablet 15 mg PO DAILY 09/16/19 09/16/19 History cariprazine 6 mg capsule 6 mg PO DAILY 09/16/19 09/16/19 History clonazepam 2 mg tablet 2 mg PO BID 09/16/19 09/16/19 History clonidine HCl 0.2 mg tablet 0.2 mg PO DAILY 09/16/19 09/16/19 History levetiracetam 500 mg 500 mg PO DAILY 09/16/19 09/16/19 History tablet,extended release 24 hr omeprazole 40 mg capsule,delayed 40 mg PO DAILY 09/16/19 09/16/19 History release dexamethasone 6 mg tablet 6 mg PO DAILY 10 days #10 tabs 07/23/21 Unknown Rx (Decadron) ibuprofen 600 mg tablet 600 mg PO Q8H PRN PRN pain #30 10/09/22 Unknown Rx TABLETS lorazepam 1 mg tablet (Ativan) 1 mg PO BID PRN agitation 3 days 03/05/24 Unknown Rx #6 tabs Allergy/AdvReac Type Severity Reaction Status Date / [facility] All[facility] Other Verified 10/09/22 21:56 milk AdvReac Upset Verified 10/09/22 21:56 Stomach Social History Smoking Status: Never smoker EXAM Physical Exam Const Vital Signs: 03/05/24 06:05 Temperature 98.3 F Temperature Source Oral Pulse Rate 92 Respiratory Rate 16 Blood Pressure 129/82 H Blood Pressure Mean 97 Pulse Ox 99 Oxygen Delivery Method Room Air MDM MDM MDM Narrative Medical decision making narrative: HISTORY OF PRESENT ILLNESS: 38-year-old male presents with Concern for twitching and concern for tardive dyskinesia. He is on several antipsychotic medicines which can predispose him to tardive dyskinesia. No signs began 1 month ago. Denies auditory or visual hallucinations. Denies suicidal ideation or homicidal ideation. Notes compliance with home antipsychotic medication. Denies chest pain or shortness of breath. Denies fever. REVIEW OF SYSTEMS: Pertinent positives: Twitching, symptoms related to heart dyskinesia Pertinent negatives: As per HPI PHYSICAL EXAM: Nursing triage notes reviewed, Vital signs reviewed Constitutional: please see mdm HENT: MMM Eyes: Pupils equal round and reactive to light, Extraocular muscles intact Neck: No stridor, no JVD, full neck ROM Lungs: Clear to auscultation, No wheezing or rales. No increased work of breathing, no conversational dyspnea, no accessory muscle use, no nasal flaring. No respiratory distress noted Heart: Regular rate and rhythm, No murmurs, No rubs and No gallops, 2+ distal pulses (radial, femoral, posterior tibial) in all extremities Abdomen: Soft, there is no tenderness, rigidity, rebound or guarding, no obvious peritoneal signs, no palpable pulsatile abdominal masses, no auscultated abdominal bruit : No CVAT Extremities: No edema Neuro: Alert and orient x 3, no focal neurological deficits, cranial nerves II through XII intact, 5/5 strength in all extremities. Intact sensation to light touch in all extremities, 2+ reflexes bilateral patella tendons. Normal gait. No ataxia. Patient displays [id number] movement of the head. There is no lipsmacking noted. Skin: No rash or lesions noted Psych: Goal-directed thought process, normal affect, does not appear to respond to internal stimuli MEDICAL DECISION MAKING: Chief Complaint: Concern for tardive dyskinesia External records reviewed: No recent psychiatric evaluation Factors affecting care: Schizophrenia, bipolar 1 disorder Social determinants of health: History mental health disorder, denies drug use [facility] Narrative: Patient was hemodynamically stable, afebrile and nontoxic-appearing. Exam with apparently voluntary [id number] movement of the head with no obvious involuntary movement of the tongue, lips, trunk or extremities. This may be related to tardive dyskinesia I will try p.o. benzodiazepine. Patient noted he drove to the emergency department in which case it would not be safe for him to drive after being exposed to benzodiazepine. Will write him prescription for Ativan to take as needed for 3 days and to have him follow with his primary prescribing psychiatrist for more definitive evaluation and therapy of possible tardive dyskinesia including newer therapeutic interventions (i.e. VMA T2 inhibitors etc.) The patient and/or family, caregivers express understanding. The patient and/or family, caregivers agrees with the plan. Shared decision making: I will have a discussion with the patient and or visitors regarding risk/benefits of further testing or admission. They will be made aware of of the risk/benefits inherent in this decision they will be given the opportunity to voice understanding. Total critical care time today provided was at least 0 minutes. This excludes separately billable procedures. Critical care time (if documented) is secondary to the patient having high probability of clinically significant/life threatening deterioration in the patient's condition which required my urgent intervention. Impression: 1. Abnormal head movements 2. History of bipolar disorder 3. History of long-term antipsychotic therapy Dispo: Discharge home This note was generated with [employer] dictation software. It may contain incorrect words, spelling, and punctuation that were not noted in review of the chart prior to signing. Discharge Plan Triage Chief Complaint: Mental Health ED Provider: Jude Johnson Dx/Rx/DC Orders Clinical Impression: Schizoaffective disorder Instructions: Understanding Tardive Dyskinesia Prescriptions: New lorazepam [Ativan] 1 mg tablet 1 mg PO BID PRN (Reason: agitation) 3 Days Qty: 6 0RF No Action omeprazole 40 MG capsule,delayed release(DR/EC) 40 mg PO DAILY clonidine HCl 0.2 MG tablet 0.2 mg PO DAILY clonazepam 2 MG tablet 2 mg PO BID buspirone 15 MG tablet 15 mg PO DAILY levetiracetam 500 MG tablet extended release 24 hr 500 mg PO DAILY aripiprazole 400 MG suspension,extended rel recon 400 mg IM .COMPLEX Rx Instructions: monthly cariprazine 6 MG capsule 6 mg PO DAILY dexamethasone [Decadron] 6 mg tablet 6 mg PO DAILY 10 Days Qty: 10 0RF ibuprofen 600 mg tablet 600 mg PO Q8H PRN PRN (Reason: pain) Qty: 30 0RF Primary Care Provider: Slim Patterson Referrals: Daryl Maldonado DO [[facility] Staff - Laborer] - Activity Restrictions/Additional Instructions: Thank you for trusting us with your care today! Please take Tylenol (2 pills, 650 mg), ibuprofen (2 pills, 400 mg) every 6 hours as needed for pain and fever control. Please take prescribed Ativan as needed to improve symptoms. Please return to the emergency department if your symptoms change or worsen. Please follow with your primary care physician for further outpatient evaluation and management. Print Language: Mohawk Disposition Disposition: Home, Self Care
[2024-03-05 06:24] VITALS: BP 129/82; PULSE 92; RESP 16; TEMP 36.8; O2SAT 99
== END 2024-03-05 06:43 | disposition home or self-care (01) ==
LOC: ED 06:42
PROVIDERS: Emergency Provider Emergency Medicine; PCP Nurse Practitioner Family; Visit Provider Emergency Medicine
DX: F25.9 Schizoaffective disorder, unspecified (principal); F31.9 Bipolar disorder, unspecified; G24.01 Drug induced subacute dyskinesia; Z79.899 Other long term (current) drug therapy
CPT/HCPCS: 99282

== ENCOUNTER 2024-11-19 20:40 | Emergency (ER) | payer MEDICARE, MEDICAID, SELFPAY ==
[2024-11-19 20:41] VITALS: BP 111/87; PULSE 110; RESP 18; TEMP 36.8; O2SAT 98; BMI 38.0
--- NOTE | 2024-11-19 21:20 | EDS_ITS ---
<Statement entered by Marcos Kim DO - 11/19/24 21:46> Patient was seen and examined with physician pharmacy technician assistant Kelly All components of the history and physical confirmed and agreed. History of present illness and physical exam: Patient is a 39-year-old male with past medical history of generalized anxiety disorder, seizures, GERD, schizophrenia, bipolar disorder who presents to the emergency department the chief complaint of upper respiratory infection for the past 3 days and hoarseness in his voice. Patient states that he has had a cough but denies any sputum production. Patient was concern for laryngitis. Patient states he has been eating and drinking normally and denies any recent sick contacts as he lives alone. Review of systems: Agree with above Physical exam: Agree with above MDM Patient is a 39-year-old male who is nontoxic in appearance who presents to the emergency department the chief complaint of hoarseness in his voice with upper respiratory infection type symptoms for the last 3 days. Patient will be given a dose of Decadron here he was advised to continue supportive care and follow-up with his PCP at his scheduled appointment tomorrow. He is encouraged to return for worsening symptoms or any concerns his dad at bedside is also agreeable this plan all question concerns answered he is discharged home in stable condition. Final impression: Upper respiratory infection secondary viral etiology laryngitis Disposition: Patient will be discharged home in stable condition Supervising attending attestation: Marcos Kim D.O. [facility] History of Present Illness Chief Complaint: Dizziness Narrative Narrative: Patient presenting today with URI symptoms has had over the past 3 days. He reports voice hoarseness, a nonproductive cough, and a sore throat. He is here with his dad. He has concerns for laryngitis. He denies fevers, chills, nausea, and vomiting. He is eating and drinking normally. He has a PMH of schizoaffective disorder. [facility] Medical History CATRINA (generalized anxiety disorder) Psychiatric hospitalisation Seizures Arthritis GERD (gastroesophageal reflux disease) Dyslexia Anxiety and depression Schizophrenia Bipolar 1 disorder Home Medications ?Medication ?Instructions ?Recorded ?Last Taken ?Type omeprazole 40 mg capsule,delayed 40 mg PO DAILY 09/16/19 History release ibuprofen 600 mg tablet 600 mg PO Q8H PRN PRN pain # 30 10/09/22 Unknown Rx TABLETS lorazepam 1 mg tablet (Ativan) 1 mg PO BID PRN agitati on 3 days 03/05/24 Unknown Rx #6 tabs dexamethasone 6 mg tablet 6 mg PO DAILY #5 tabs Unknown Rx buspirone 10 mg tablet 20 mg (2 x 10 mg) PO TID #18 0 tabs 09/18/24 Unknown Rx clonidine HCl 0.3 mg tablet 0.3 mg PO QHS #30 tabs Unknown Rx sertraline 100 mg tablet See Rx Instructions PO .COMP RAND 09/18/24 Unknown Rx #45 tabs trazodone 50 mg tablet 100 mg (2 x 50 mg) PO QHS #6 0 tabs 09/19/24 Unknown Rx clonazepam 1 mg tablet 1 mg PO QAM #30 tabs 5 Unknown Rx clonazepam 2 mg disintegrating 2 mg PO QHS #30 tabs Unknown Rx tablet levetiracetam 500 mg 3,000 mg (6 x 500 mg) PO ALEXANDRA LY 09/25/24 Unknown Rx tablet,extended release 24 hr #180 tabs aripiprazole 400 mg intramuscular 400 mg IM Q28D #1 ea 10/02/24 Unknown Rx suspension,extended release cariprazine 1.5 mg capsule 1.5 mg PO Q OTHER DAY #7 ca ps 11/15/24 Unknown Rx (Vraylar) risperidone 0.5 mg tablet 0.5 mg PO QHS #30 tabs 11/19 Unknown Rx Allergy/AdvReac Type Severity Reaction Status Date / Time ziprasidone (From [facility]) Allergy Other Verified 11/19/24 20:46 milk AdvReac Upset Verified 11/19/24 20:46 Stomach Family History Other Diabetes Surgical History No pertinent past surgical history Social History Smoking Status: Never smoker alcohol intake: never substance use type: does not use ROS ROS ED Constitutional Constitutional ED: Denies chills or fever(s) ENT ENT ED: Reports sore throat Cardiovascular Cardiovascular: Denies chest pain Respiratory/Chest Respiratory/Chest: Reports cough; Denies dyspnea or wheezing Gastrointestinal Gastrointestinal: Denies abdominal pain, nausea or vomiting Musculoskeletal Musculoskeletal: Denies arthralgias or myalgias Integumentary Denies rash Neurologic Neurologic: Denies weakness Psychiatric Psychiatric: Denies anxiety, depression, suicidal ideation or suicidal thoughts EXAM Physical Exam Const Vital Signs: 11/19/24 20:41 Temperature 98.3 F Temperature Source Temporal Pulse Rate 110 H Respiratory Rate 18 Blood Pressure 111/87 H Blood Pressure Mean 95 Pulse Ox 98 Oxygen Delivery Method Room Air Positive well nourished, well developed and no apparent distress General Appearance ED: well developed HEENT Reports normocephalic, head/scalp atraumatic and TM's clear Tympanic Membrane ED: Yes TM's clear bilateral Mouth ED: Yes moist mucous membranes normal Throat: posterior oropharynx normal, tonsils normal and uvula midline Eyes PERRL and EOMs intact bilaterally Neck full ROM and supple Chest Wall inspection of chest normal Resp normal respiratory effort and clear to auscultation bilaterally Cardio regular rate and regular rhythm GI soft to palpation, non-tender, non-distended and no masses Back/Spine normal ROM and normal to inspection Extremity normal to inspection and full ROM Neuro oriented x3, CN's II-XII intact bilaterally, moves all extremities, no focal motor deficits and no sensory deficits noted Sensorium / Orientation: awake and alert Psych mental status grossly normal and thought process normal Skin no rashes or lesions noted and no wounds MDM MDM MDM Narrative Medical decision making narrative: Patient presenting today with URI symptoms that he has had over the past 3 days. He is nontoxic-appearing and in no acute distress. He has concerns for laryngitis, he is speaking slightly louder than whisper on exam. He has no meningeal signs. Tolerating secretions and p.o. intake. I will give him a dose of Decadron and he will be discharged home in stable condition, recommended following up with PCP. Discharge Plan Triage Chief Complaint: Dizziness ED Midlevel Provider: Cassidy Gaines ED Provider: Marcos Kim Dx/Rx/DC Orders Clinical Impression: Laryngitis Instructions: ED Laryngitis Prescriptions: No Action dexamethasone 6 mg tablet 6 mg PO DAILY Qty: 5 0RF sertraline 100 mg tablet See Rx Instructions PO .COMPLEX Qty: 45 2RF Rx Instructions: Take 0.5 tablet by mouth every morning and take 1 tablet by mouth at bedtime clonidine HCl 0.3 mg tablet 0.3 mg PO QHS Qty: 30 2RF buspirone 10 mg tablet 20 mg PO TID Qty: 180 2RF Vraylar 1.5 mg capsule 1.5 mg PO Q OTHER DAY Qty: 7 0RF omeprazole 40 MG capsule,delayed release(DR/EC) 40 mg PO DAILY ibuprofen 600 mg tablet 600 mg PO Q8H PRN PRN (Reason: pain) Qty: 30 0RF lorazepam [Ativan] 1 mg tablet 1 mg PO BID PRN (Reason: agitation) 3 Days Qty: 6 0RF trazodone 50 mg tablet 100 mg PO QHS Qty: 60 2RF levetiracetam 500 mg tablet extended release 24 hr 3,000 mg PO DAILY Qty: 180 2RF clonazepam 2 mg tablet,disintegrating 2 mg PO QHS Qty: 30 2RF Rx Instructions: administer 30 minutes before bedtime clonazepam 1 mg tablet 1 mg PO QAM Qty: 30 2RF aripiprazole 400 mg suspension,extended rel recon 400 mg IM Q28D Qty: 1 2RF risperidone 0.5 mg tablet 0.5 mg PO QHS Qty: 30 0RF Primary Care Provider: JEAN MOMIN Referrals: EJAN MOMIN NP-C [Primary Care Provider] - 5-7 Days Activity Restrictions/Additional Instructions: Follow-up with your PCP and return for any other concerns. Please call your psychiatrist to see what [id number] flu medications you can take with your medications. Print Language: Swazi Disposition Disposition: Home, Self Care
[2024-11-19] MEDS: dexAMETHasone 10 MG/ML Vial 8 MG PO.IVFORM (21:43)
== END 2024-11-19 21:48 | disposition home or self-care (01) ==
PROVIDERS: Emergency Provider Emergency Medicine; PCP Nurse Practitioner Family; Visit Provider Emergency Medicine
DX: J04.0 Acute laryngitis (principal); R42 Dizziness and giddiness; K21.9 Gastro-esophageal reflux disease without esophagitis; Z79.899 Other long term (current) drug therapy
CPT/HCPCS: 99282